=== PATIENT | female | born 1965 | race Caucasian/White ===

== ENCOUNTER 2020-07-08 10:32 | Outpatient (CLI) | payer OTHER, SELFPAY ==
--- NOTE | ~2020-07-08 | XR_ITS ---
EXAMINATION: XR thoracic spine 2V DATE: 07/08/2020 11:02 INDICATION: Back pain. TECHNIQUE: 3 views of thoracic spine were obtained. COMPARISON: Chest 2 views 12/24/2017 FINDINGS: There is 11 degrees levoscoliosis of thoracic spine. There is kyphosis of thoracic spine. T here are fractures of 6 contiguous mid thoracic vertebral bodies, most of which are chronic. Two of t he fractures have worsened 12/24/17. There is mild to moderately decreased disc height at multiple mid thoracic levels. There are endplate osteophytes at most levels. There are multiple old healed rib fra ctures bilaterally. IMPRESSION: 1. Two vertebral body fractures in mid thoracic spine, likely chronic, but worsened from 12/24/2017. 2. Moderate thoracic spondylosis. 3. Thoracic kyphosis and levoscoliosis. Reviewed, dictated and finalized at location B. IMPRESSION: 1. Two vertebral body fractures in mid thoracic spine, likely chronic, but wors ened from 12/24/2017. 2. Moderate thoracic spondylosis. 3. Thoracic kyphosis and levoscoliosis.
--- NOTE | ~2020-07-08 | XR_ITS ---
EXAMINATION: XR lumbar spine 2-3V DATE: 07/08/2020 11:02 INDICATION: Mid to low back pain. Arthralgia. TECHNIQUE: 3 views of lumbar spine were obtained. COMPARISON: Chest 2 views 12/24/2017 FINDINGS: Bone alignment is normal. There are 13 pairs of ribs. There are old healed right rib fractu res. There is a compression fracture of L3 with 2/5 loss of height. Intervertebral disc heights are n ormal. There are endplate osteophytes at most levels. There is moderate to severe facet joint osteoar thritis in lower lumbar spine. There are gallstones in the gallbladder. IMPRESSION: 1. Age-indeterminate compression fracture of L3, new from 12/24/2017. 2. Mild lumbar spondylosis. 3. Cholelithiasis. Reviewed, dictated and finalized at location B.
== END 2020-07-08 10:33 | disposition home or self-care (01) ==
LOC: ANHIMG 10:38
PROVIDERS: Visit Provider Physician Assistant
DX: M47.894 Other spondylosis, thoracic region (principal); M47.896 Other spondylosis, lumbar region; K80.20 Calculus of gallbladder without cholecystitis without obstruction
CPT/HCPCS: 72070; 72100

== ENCOUNTER 2020-07-16 14:55 | Outpatient (CLI) | payer OTHER, SELFPAY | END 2020-07-16 14:56 | LOC: ANHCOVIDVC 14:56 | DX: Z23 Encounter for immunization (principal) | CPT/HCPCS: 0001A; 91300 ==

== ENCOUNTER 2020-08-06 14:54 | Outpatient (CLI) | payer OTHER, SELFPAY | END 2020-08-06 14:55 | disposition home or self-care (01) | LOC: ANHCOVIDVC 14:54 | DX: Z23 Encounter for immunization (principal) | CPT/HCPCS: 0002A; 91300 ==

== ENCOUNTER 2020-08-13 14:56 | Outpatient (CLI) | payer OTHER, SELFPAY ==
--- NOTE | ~2020-08-13 | DEXA_ITS ---
Bone Density Report Name: Princess Gardner Age: 55 Sex: Female Ethnicity: White Date of : 1965 Indication: postmenopausal osteoporosis; height loss; Referring Provider: Joao, Sarabjit Kebede Study: Bone densitometry was performed. Exam Date: August 13, 2020 Accession number: [id number] Bone Density: Region BMD T-score Z-score Classification AP Spine (L1, L2, L3) 0.750 -2.4 -1.4 Osteopenia Femoral Neck (Left) 0.527 -2.9 -1.8 Osteoporosis Total Hip (Left) 0.591 -2.9 -2.2 Osteoporosis Total Hip Bilateral Avg 0.587 -3.0 -2.3 Osteoporosis Femoral Neck (Right) 0.502 -3.1 -2.0 Osteoporosis Total Hip (Right) 0.582 -3.0 -2.3 Osteoporosis World Health Organization criteria for BMD impression classify patients as: Normal (T-score at or above -1.0), Osteopenia (T-score between -1.0 and -2.5), or Osteoporosis (T-score at or below -2.5). 10-year Fracture Risk: FRAX not reported because: Some T-score for Spine Total or Hip Total or Femoral Neck at or below -2.5 Previous Exams: Region Exam Age BMD T-score BMD Change BMD Change Date g/cm2 vs Baseline vs Previous AP Spine(L1, L2, L3) 08/13/2020 55 0.750 -2.4 0.136(22.1%)* 0.136(22.1%)* 04/27/2018 53 0.614 -3.7 Total Hip(Left) 08/13/2020 55 0.591 -2.9 0.036(6.4%)* 0.036(6.4%)* 04/27/2018 53 0.556 -3.2 Total Hip(Right) 08/13/2020 55 0.582 -3.0 0.039(7.2%)* 0.039(7.2%)* 04/27/2018 53 0.542 -3.3 *Denotes significance at 95% confidence level, LSC for AP Spine = 0.022 g/cm2, LSC for Total Hip = 0.027 g/cm2 Clinical Information Provided by Patient: Smokes Has used the following medications: Fosamax (i.e. alendronate), Calcium Patient maximum height was 64 Menopause Age: 45 Drinks caffeinated beverages Onset of menses at age 15 Number of children 1 Impression: The patient has osteoporosis, based on the Right Femoral Neck T-score. The patient has risk factors, including: smoking. No significant bone loss was observed. Discussion: HIGH RISK OF FRACTURE. BONE DENSITY IS UNDESIRABLY LOW AT ONE OR MORE SKELETAL SITES, CONSISTENT WITH OSTEOPOROSIS. ALSO, BONE DENSITY IS LOWER THAN EXPECTED FOR AGE AND SEX AT ONE OR MORE SKELETAL SITES; RECOMMEND A DILIGENT SEARCH FOR SECONDARY CAUSES OF BONE LOSS. This patient's lowest T-score meets the World Health Organization's (WHO) criteria for osteoporosis at one or more sites (T-score -2.5 or below). In untreated patients, the risk of osteoporotic fracture
== END 2020-08-13 14:57 | disposition home or self-care (01) ==
LOC: ANHIMG 14:58
PROVIDERS: PCP Physician Assistant; Visit Provider Physician Assistant
DX: M81.0 Age-related osteoporosis without current pathological fracture (principal)
CPT/HCPCS: 77080

== ENCOUNTER 2021-07-17 01:20 | Day surgery (SDC) | payer OTHER, SELFPAY ==
[2021-07-08 14:10] VITALS: BMI 23.8
--- NOTE | 2021-07-08 14:17 | PC.NURSE ---
Report to the Outpatient Waiting Room, entrance under the green pavilion located off [facility], at time _0915 on date ___07/17/21____. OR Time: __111 . - You and your visitor will be asked a series of questions to screen for COVID 19 for your protection. - A mask is required within the hospital. Preoperative COVID Testing Requirements: No COVID Test needed if: (proof is required; if not received patient will have Rapid Test prior to entry) - Patient has received COVID Vaccine at least 14 days prior to procedure date or - Patient has positive COVID test result within last 90 days of surgery date. COVID Test needed if above criteria is not met If not COVID vaccinated a COVID test must be conducted within 72 hours of surgery and patient is asked to isolate self from time of testing until procedure. You will go to the [facility] for your COVID testing. The [facility] site is located at the corner of [address] [facility]. You will only be called if COVID results are positive and your surgeon may reschedule your elective surgery date. Patients may have clear liquids (water, carbonated beverages, clear teas, apple juice) until 3 hours prior to surgery with a maximum of 20 ounces. - No food from midnight until time of surgery - Infants may have breast milk until 4 hours before surgery, formula 6 hours prior to surgery. - Children will be allowed to drink immediately following surgery. If applicable, please bring a bottle or sippy cup to assist with drinking. Juice, water, soda, and popsicles are readily available. For infants on formula, please bring formula the day of surgery. Pacifiers are allowed. Take the following medications with a SIP of water the morning of surgery: ___NONE Medications to discontinue per physician SUPPLIMENTS,HYDROXYCHLOROQUINE Date to take last dose____07/14/21 Please no make-up, nail indonesian, hairspray, perfume, deodorant, or body powder the day of surgery. No jewelry (including any body piercings) or valuables the day of surgery, leave them at home. Please take a shower or bath the night before, or the morning of, surgery with an antibacterial soap. Wear comfortable, loose fitting clothing. Children are encouraged to wear pajamas. - Jewelry must be removed prior to entering the operating room. Rings and piercings that are not removed may be cut off. - The hospital will not accept responsibility for valuables. - Please leave all valuables, including medications, at home the day of surgery. If you are going home after surgery, a licensed transit mixer driver must drive you home. - NO public transportation without another adult. - We recommend that an adult stay with you for 24 hours following discharge. - We also recommend that you do not drive, make important decision, drink alcoholic beverages, or take any drugs that were not prescribed by your health care provider for at least 24 hours after your discharge time. For Pediatric surgeries, we recommend two adults accompany the child home (only one inside the building at this time). One visitor will be allowed to accompany the patient into the hospital. Patients visitor will be instructed to remain with patient at all times or leave the building. We will allow the visitor to come back to the postoperative area when patient is ready. Follow any additional instructions given to you from your surgeon. Telephone instructions given to __PATIENT and asked if any additional questions and then verbalized understanding. Patient advised to call surgeon office or pre surgery nurse liaison [phone] if any additional questions.
[2021-07-17] VITALS (7 sets, daily range): BP systolic 105–133; BP diastolic 72–80; PULSE 67–90; RESP 14–16; TEMP 36.2–36.4; O2SAT 93–99
--- NOTE | ~2021-07-17 | XR_ITS ---
EXAMINATION: XR surgery orthopedic DATE: 07/17/2021 12:08 INDICATION: Right foot surgery TECHNIQUE: 2 fluoroscopic images of the right forefoot were obtained during procedure performed by Dr Emma Ayoub. Radiologist was not present for the imaging or procedure. The amount of fluoroscopy time used during this procedure was 0.1 minutes. COMPARISON: None. FINDINGS: Osteotomy of the head of the second proximal phalanx potentially for second proximal interphalangeal arthrodesis. The second toe is fixed in mild dorsiflexion at the metatarsophalangeal joint with an ax ially directed percutaneous pin which extends from the tuft of the distal phalanx across the base of the proximal phalanx and into the neck of the second metatarsal. No fractures identified. Bone island at the first distal phalanx. IMPRESSION: 1. Fluoroscopy utilized during likely hammertoe correction at the right second tarsal interphalangeal joint. See procedure note for further detail. Reviewed, dictated and finalized at location A.
--- NOTE | 2021-07-17 07:09 | WPDHPUPDATE1 ---
History and Physical Update Update Date/Time: 07/17/21 07:09 History and Physical has been reviewed, including an updated exam of the patient. There are NO changes in the patient's condition. Risks, benefits, and alternatives have been discussed and questions answered. Patient agrees to proceed with procedure.
--- NOTE | 2021-07-17 10:02 | WPDANESEPPF ---
Anes - Initial Pre Proc Eval Procedure: Operation Date: 07/17/21 11:15 Proposed Procedures p Lateral Release Right First Metatarsal Phalangeal Joint, - Mundo Ayoub JR, MD s Hammer Toe Repair Second Digit Right Foot, Capsulotomy and Extensor Tenotomy Fifth Toe Right Foot - Mundo Ayoub JR, MD Date/Time: 07/17/21 10:02 Surgeon: Mundo Ayoub JR, MD Pre Op Diagnosis: bunion, hammertoe 2nd&5th digits rt foot Patient Data Age: 56 Gender: F Height: 1.56 m Weight: 58.2 kg Last Vital Signs Temp 36.4 C 07/17/21 09:20 Pulse 90 07/17/21 09:20 Resp 16 07/17/21 09:20 BP 133/76 07/17/21 09:20 Pulse Ox 99 07/17/21 09:20 Allergies Allergy/AdvReac Type Severity Reaction Status Date / Time No Known Allergies Allergy Unverified 07/17/21 09:51 Home Medications Medication Instructions Recorded Confirmed Type Vitamin D (with calcium) 1 tab-cap PO DAILY 07/08/21 07/17/21 History calcium 100 mg PO DAILY 07/08/21 07/17/21 History hydroxychloroquine 300 mg PO DAILY 07/08/21 07/17/21 History leflunomide 20 mg PO DAILY 07/08/21 07/17/21 History Patient hx anesthesia problems: none Family hx anesthesia problems: none Results Review: All pre-operative results and documents have been reviewed as part of the pre-operative evaluation. [facility] Past Medical History Medical History Eczema Rheumatoid arthritis Social History Social History Smoking packs per day: 0.5 Smoking cigarettes per day: 10.0 Years smoked: 35 Smoking pack-years: 17.50 Smoking status: Current every day smoker Alcohol use details: 3 PER MONTH Living arrangements: alone Anes - Eval Final PreProcedure Day of Procedure 07/17/21 10:02 Patient weight: normal Heart: regular rate and rhythm Lungs: decreased breath sounds Airway: Mallampati scale class II Neurological: alert and oriented Last oral intake: >/= 8 hours ASA classification: III Emergent: no Anesthetic plan: proceed Anesthesia type and monitoring: general LMA and standard monitoring Results Review: All pre-operative results and documents have been reviewed as part of the pre-operative evaluation. Informed Consent: The patient's anesthetic plan and its attendant risks and benefits were discussed with the patient/family/POA. Questions were solicited and answers provided to the satisfaction of the patient/family/POA.
[2021-07-17] MEDS: LACTATED RINGERS 1,000 ML 30 ML IV CONT (10:15)
[2021-07-17] MEDS: ceFAZolin 2 GM/D5W 50 ML 2 GM/50 ML BAG IVPB (11:11)
[2021-07-17] MEDS: BUPIVACAINE HCL 0.5% PF 30 ML VIAL INFILTRATE (11:40)
[2021-07-17] MEDS: LIDOCAINE HCL 2% LOCAL INJ 20 ML VIAL INFILTRATE (11:40)
--- NOTE | 2021-07-17 11:56 | SUR.OPER ---
2nd toe right foot 1.4 k wire ([id number]) with [place].
--- NOTE | 2021-07-17 14:06 | W.PM.PROC2 ---
Procedure Note - Detailed Date of Procedure 07/17/21 Pre-op Diagnosis 1. Mild bunion deformity right foot 2. Painful hammertoe deformity 2nd digit right foot 3. Dorsally contracted 5th digit right foot Post-op Diagnosis Same Procedure Performed 1. Lateral release of the first metatarsal phalangeal joint with adductor hallucis to first metatarsal head tendon transfer 2. Hammertoe repair with arthrodesis of the proximal interphalangeal joint of the right 2nd digit 3. Extensor tenotomy and dorsal capsulotomy of the fifth metatarsal phalangeal joint right foot Surgeon Mundo Ayoub JR, DPIrma Anesthesia MAC and Local Indications Right forefoot pain Description of Procedure Under mild sedation, the patient was brought in to the operating room, placed on the operating table in the supine position. A pneumatic ankle tourniquet was placed about the patient's ankle. Following monitored anesthesia care, local anesthesia was obtained about the right ankle with a ring block utilizing 20 mL of a 1:1 mixture of 2% Lidocaine plain and 0.5% Marcaine plain . The foot was then scrubbed, prepped, and draped in the usual aseptic manner. An Esmarch bandage was then used to exsanguinate the patient's foot and the pneumatic ankle tourniquet was then inflated. Attention was directed to the second digit of the right foot where a 3cm incision was made from the distal interphalangeal joint extending to the 2nd digit base of the proximal phalanx. A transverse tenotomy was created dorsal to the proximal interphalangeal joint, next the head of the proximal phalanx was resected with an oscillating saw blade, the [employer] hammertoe planer was used to denude and prepare the joint for the hammertoe implant from the base of the middle phalanx and distal proximal phalanx, the canal of the proximal phalanx was noted to be very soft and likely not able to hold the [employer] hammertoe implant. Next, I drove a k wires out the distal tip of the 2nd digit and then retrograded the k wire though the 3 phalanges of the 2nd digit, held the 2nd digit in a rectus position and proceeded to drive the k wire dorsal and finally within the 2nd metatarsal. Excellent corretion of the hammertoe deformity was noted. I cut the end of the K wire and placed a Bit9gan Pin Ball over the tip of the digit. I reapproximated the subcutaneous structures with 4.0 Vicryl and the skin with 4-0 Monocryl. Next, I directed my attention to the first intermetatarsal space where I made a 3cm incision over the dorsal lateral first metatarsal phalangeal joint. I dissected deep utilizing blunt tenotomy scissors to the base of the proximal phalanx and the fibular sesamoid. I cut the lateral aspect of the first metatarsal capsule as well as the fibular surface of the sesamoid as well as proximal and distal. I took a Juggernaut 1.4 [place] and drove it into the lateral head of the first metatarsal, next I sutured the adductor hallucis to the head of the first metatarsal and released its attachment distally, The fibular sesamoid positioned seemed to improve as well as reduction of the first intermetatarsal angle as noted with a dorsal to plantar fluoroscopy view. I reapproximated the subcutaneous structures with 4-0 Vicryl and the skin with 4-0 Monocryl. Finally, I made a 2cm incision over the 5th digit metatarsal phalangeal joint I made a transverse cut through the tightly contracted extensor tendons and capsule overlying the joint. I utilized the McGlammry elevator to free the plantar fifth metatarsal phalangeal joint. After the release of the above mentioned structures the fifth digit was now in a rectus position and in line with the fourth digit in the sagittal plane. Upon completion of the procedure, the incisions were dressed with Steri-Strips, Adaptic, 4x4s, Kerlix, and Coban. The pneumatic ankle tourniquet was then deflated and a prompt hyperemic response was noted to all digits of the right foot. A CAM walker
== END 2021-07-17 13:39 | disposition home or self-care (01) ==
PROVIDERS: Visit Provider Podiatrist Foot & Ankle Surgery
PROC: (CPT 28750; principal; 2021-07-17 11:15)
PROC: (CPT 28285; 2021-07-17 11:15)
DX: M21.611 Bunion of right foot (principal); M20.41 Other hammer toe(s) (acquired), right foot; M20.5X1 Other deformities of toe(s) (acquired), right foot; L30.9 Dermatitis, unspecified; M06.9 Rheumatoid arthritis, unspecified; F17.210 Nicotine dependence, cigarettes, uncomplicated
CPT/HCPCS: 28285; 28270; 28286; C1713; J0690; J1100; J2250; J2270; J2405; J2704; J7120

== ENCOUNTER 2021-10-09 00:15 | Day surgery (SDC) | payer OTHER, SELFPAY ==
[2021-09-30 14:32] VITALS: BMI 24.1
--- NOTE | 2021-09-30 14:40 | PC.NURSE ---
Report to the Outpatient Waiting Room, entrance under the green pavilion located off [facility], at time 0630 on date 10/09/21. OR Time: 0830. - You and your visitor will be asked a series of questions to screen for COVID 19 for your protection. - Only one visitor is allowed at this time. - The patient visitor is requested to leave or wait in car when not with patient. - A mask is required within the hospital. Patients may have clear liquids (water, carbonated beverages, clear teas, apple juice) until 3 hours prior to surgery with a maximum of 20 ounces. - No food from midnight until time of surgery Take the following medications with a SIP of water the morning of surgery: LEFLUNOMIDE Medications to discontinue per physician: VITAMINS/HYDROXYCHLOROQUINE Date to take last dose: 10/05/21/PER DR. BAILEY Please no make-up, nail macedonian, hairspray, perfume, deodorant, or body powder the day of surgery. No jewelry (including any body piercings) or valuables the day of surgery, leave them at home. Please take a shower or bath the night before, or the morning of, surgery with an antibacterial soap. Wear comfortable, loose fitting clothing. - Jewelry must be removed prior to entering the operating room. Rings and piercings that are not removed may be cut off. - The hospital will not accept responsibility for valuables. - Please leave all valuables, including medications, at home the day of surgery. If you are going home after surgery, a licensed road oiling truck driver must drive you home. - NO public transportation without another adult. - We recommend that an adult stay with you for 24 hours following discharge. - We also recommend that you do not drive, make important decision, drink alcoholic beverages, or take any drugs that were not prescribed by your health care provider for at least 24 hours after your discharge time. Follow any additional instructions given to you from your surgeon. If you or anyone in your household have experienced Covid symptoms in the past week, please notify your surgeon or the nurse liaison at the phone number below for possible testing. Telephone instructions given to PT - RALF HOROWITZ and asked if any additional questions and then verbalized understanding. Patient advised to call surgeon office or pre surgery nurse liaison [phone] if any additional questions.
--- NOTE | 2021-10-08 10:37 | WPDANESEPPF ---
Anes - Initial Pre Proc Eval Procedure: Operation Date: 10/09/21 08:30 Proposed Procedures p Hammer Toe Repair Second Digit Left Foot - Mundo Ayoub JR, MD <Regis Mcqueen MD - Last Filed: 10/08/21 10:38> Date/Time: 10/08/21 10:37 <Regis Mcqueen MD - Last Filed: 10/08/21 10:38> Surgeon: Mundo Ayoub JR, MD <Regis Mcqueen MD - Last Filed: 10/08/21 10:38> Pre Op Diagnosis: painful hammer toe 2nd digit left foot <Regis Mcqueen MD - Last Filed: 10/08/21 10:38> Patient Data Age: 56 Gender: F Height: 1.56 m Weight: 59 kg <Regis Mcqueen MD - Last Filed: 10/08/21 10:38> Allergies Allergy/AdvReac Type Severity Reaction Status Date / Time No Known Allergies Allergy Unverified 09/30/21 14:31 <Regis Mcqueen MD - Last Filed: 10/08/21 10:38> Home Medications Medication Instructions Recorded Confirmed Type Vitamin D (with calcium) 1 tab-cap PO DAILY 07/08/21 09/30/21 History calcium 500 mg tablet 100 mg PO DAILY 07/08/21 09/30/21 History hydroxychloroquine 200 mg tablet 300 mg PO DAILY 07/08/21 09/30/21 History leflunomide 20 mg tablet 20 mg PO DAILY 07/08/21 09/30/21 History <Regis Mcqueen MD - Last Filed: 10/08/21 10:38> Patient hx anesthesia problems: none <Bob Hou DO - Last Filed: 10/09/21 07:19> Family hx anesthesia problems: none <Bob Hou DO - Last Filed: 10/09/21 07:19> Results Review: All pre-operative results and documents have been reviewed as part of the pre-operative evaluation. <Regis Mcqueen MD - Last Filed: 10/08/21 10:38> [facility] Past Medical History Medical History: Medical History Eczema Rheumatoid arthritis <Regis Mcqueen MD - Last Filed: 10/08/21 10:38> Social History Social History: Social History Smoking packs per day: 0.5 Smoking cigarettes per day: 10.0 Years smoked: 30 Smoking pack-years: 15.00 Smoking status: Current every day smoker Tobacco type: cigarettes Alcohol intake: current Alcohol use details: 4/MONTH Substance use: never Substance use type: does not use Living arrangements: alone Spiritual care concerns: No <Regis Mcqueen MD - Last Filed: 10/08/21 10:38> Anes - Eval Final PreProcedure Day of Procedure 10/08/21 10:37 <Regis Mcqueen MD - Last Filed: 10/08/21 10:38> Patient weight: normal <Regis Mcqueen MD - Last Filed: 10/08/21 10:38> Heart: regular rate and rhythm <Regis Mcqueen MD - Last Filed: 10/08/21 10:38> Lungs: decreased breath sounds <Regis Mcqueen MD - Last Filed: 10/08/21 10:38> Airway: Mallampati scale class II <Regis Mcqueen MD - Last Filed: 10/08/21 10:38> Neurological: alert and oriented <Regis Mcqueen MD - Last Filed: 10/08/21 10:38> Last oral intake: >/= 8 hours <Regis Mcqueen MD - Last Filed: 10/08/21 10:38> ASA classification: II <Regis Mcqueen MD - Last Filed: 10/08/21 10:38> III <Bob Hou DO - Last Filed: 10/09/21 07:19> Emergent: no <Regis Mcqueen MD - Last Filed: 10/08/21 10:38> Anesthetic plan: proceed <Regis Mcqueen MD - Last Filed: 10/08/21 10:38> Anesthesia type and monitoring: general LMA and standard monitoring <Regis Mcqueen MD - Last Filed: 10/08/21 10:38> Results Review: All pre-operative results and documents have been reviewed as part of the pre-operative evaluation. <Regis Mcqueen MD - Last Filed: 10/08/21 10:38> Informed Consent: The patient's anesthetic plan and its attendant risks and benefits were discussed with the patient/family/POA. Questions were solicited and answers provided to the satisfaction of the patient/family/POA. <Regis Mcqueen MD - Last Filed: 10/08/21 10:38>
--- NOTE | ~2021-10-09 | XR_ITS ---
EXAMINATION: XR surgery orthopedic DATE: 10/09/2021 09:07 INDICATION: Left foot surgery TECHNIQUE: Single dorsal plantar fluoroscopic image of the left forefoot was obtained during procedur e performed by Dr. Ayoub. Radiologist was not present for the imaging or procedure. The amount of fluoroscopy time used during this procedure was 0.3 minutes. COMPARISON: None. FINDINGS: Osteotomy of the head of the second proximal phalanx and second proximal interphalangeal tim int arthrodesis fixed with a bidirectional compression screw which has been placed over an axially di rected percutaneous wire extending from the distal phalanx to the middle and proximal phalanges of th e head of the second metatarsal. No acute fracture. Mild osteoarthritis at the first metatarsophalang eal and a few interphalangeal joints. There is an abnormal contour to the head of the fifth metatarsa l and base of the fifth proximal phalanx which could represent sequela of old trauma, surgery or arth ritis more severe than the the relatively preserved joint space would indicate. IMPRESSION: 1. Second proximal interphalangeal joint arthrodesis with resection of the head of the second proxima l phalanx and bidirectional screw fixation. Reviewed, dictated and finalized at location A. IMPRESSION: 1. Second proximal interphalangeal joint arthrodesis with resection of the head of the second proximal phalanx and bidirectional screw fixation.
--- NOTE | 2021-10-09 07:25 | WPDHPUPDATE1 ---
History and Physical Update Update Date/Time: 10/09/21 07:25 History and Physical has been reviewed, including an updated exam of the patient. There are NO changes in the patient's condition. Risks, benefits, and alternatives have been discussed and questions answered. Patient agrees to proceed with procedure.
[2021-10-09] MEDS: LACTATED RINGERS 1,000 ML 30 ML IV CONT (07:44)
[2021-10-09 07:49] VITALS: BP 108/78; PULSE 86; RESP 16; TEMP 36.6; O2SAT 99
[2021-10-09] MEDS: ceFAZolin 2 GM/D5W 50 ML 2 GM/50 ML BAG IVPB (08:28)
[2021-10-09] MEDS: LIDOCAINE HCL 2% LOCAL INJ 20 ML VIAL 10 ML INFILTRATE (08:44)
[2021-10-09] MEDS: BUPIVACAINE HCL 0.5% PF 30 ML VIAL 10 ML INFILTRATE (08:46)
[2021-10-09 09:17] VITALS: BP 103/74; PULSE 71; RESP 14; O2SAT 95
--- NOTE | 2021-10-09 09:25 | P.OP_ITS ---
Procedure Note - Detailed Date of Procedure 10/09/21 Pre-op Diagnosis Painful hammer toe 2nd digit left foot Post-op Diagnosis Same Procedure Performed 1. Hammertoe repair 2nd digit left foot with arthrodesis of the proximal interphalangeal joint 2. Extensor tenotomy 2nd digit left foot Surgeon Mundo Ayoub JR, GERARDO Indications Painful 2nd digit hammertoe 2nd digit left foot Description of Procedure Under mild sedation, the patient was brought in to the operating room, placed on the operating table in the supine position. A pneumatic ankle tourniquet was placed about the patient's ankle. Following monitored anesthesia care, local anesthesia was obtained about the foot utilizing 20 mL of a 1:1 mixture of 2% Lidocaine plain and 0.5% Marcaine plain with a modified proximal Mays block proximal to the corresponding digit. The foot was then scrubbed, prepped, and draped in the usual aseptic manner. An Esmarch bandage was then used to exsanguinate the patient's foot and the pneumatic ankle tourniquet was then inflated. Attention was directed to the second digit of the left foot where a 3cm incision was made from the distal interphalangeal joint extending to the 2nd metatarsal head. A transverse tenotomy was created dorsal to the proximal interphalangeal joint, next the head of the proximal phalanx was resected with an oscillating saw blade, the [employer] hammertoe planer was used to denude and prepare the joint for the hammertoe implant from the base of the middle phalanx and distal proximal phalanx. Next, I implanted the [employer] Phalinx size Medium hammertoe implant in a cannulated fashion using standard technique. Fluoroscopy was used to make sure that the digit and implant were appropriately positioned. I also used the K wire to hold the 2nd digit in a rectus position by driving the K wire into the 2nd metatarsal. I reapproximated the subcutaneous structures with 4.0 Vicryl and the skin with 4-0 Monocryl. I noticed an extensor pull the 2nd digit still noted.I made a small 1cm incision along the distal metaphysis of the 2nd metatarsal. I utilized a 15 blade to release the long extensor tendon. the extensor pull was immediately noted to be reduced. I did reapproximate the skin with 4-0 Prolene in simple interrupted suture technique. Upon completion of the procedure, the incisions were dressed with Steri-Strips, Adaptic, 4x4s, Kerlix, and Coban. The pneumatic ankle tourniquet was then deflated and a prompt hyperemic response was noted to all digits of the left foot. A surgical shoe was then applied. The patient did very well with the procedure and the anesthesia. The patient was transferred to the recovery room with vital signs stable and vascular status intact to all toes of the left foot. Following a period of postoperative monitoring, the patient will be discharged home on the following written and oral postoperative instructions: 1. The patient should keep the dressing clean, dry, and intact. Use a cast protector bag with showers. 2. The patient will be protected with a CAM walker boot 3. Patient should ice and elevate the affected foot when at rest. 4. The patient is to contact Dr. Ayoub for all postop care and if any problems arise. 5. Prescriptions were written for Percocet 5/325 to be taken 1 p.o. q.4-6 hours as needed for severe pain. Implants Size medium [employer] Phalinx hammertoe implant Estimated Blood Loss 1 Complications No immediate complications Condition Stable Disposition Same day
[2021-10-09 09:47] VITALS: BP 112/62; PULSE 63; RESP 16
== END 2021-10-09 09:55 | disposition home or self-care (01) ==
PROVIDERS: Visit Provider Podiatrist Foot & Ankle Surgery
PROC: (CPT 28285; principal; 2021-10-09 08:30)
DX: M20.42 Other hammer toe(s) (acquired), left foot (principal); M06.9 Rheumatoid arthritis, unspecified; L30.9 Dermatitis, unspecified; F17.210 Nicotine dependence, cigarettes, uncomplicated
CPT/HCPCS: 28285; 28234; 99199; J0690; J2250; J2704; J3010; J7120

== ENCOUNTER 2023-01-14 13:40 | Outpatient (CLI) | payer OTHER, SELFPAY ==
--- NOTE | ~2023-01-14 | DEXA_ITS ---
Bone Density Report Name: RALF HOROWITZ Age: 57 Sex: Female Ethnicity: White Date of : 1965 Indication: postmenopausal osteoporosis; monitoring treatment; height loss; prior fracture; rheumatoid arthritis; Referring Provider: KATERINA, SANDY Kebede Study: Bone densitometry was performed. Exam Date: January 14, 2023 Accession number: [id number] Bone Density: Region BMD T-score Z-score Classification AP Spine(L1-L4) 0.768 -2.5 -1.3 Osteoporosis Femoral Neck (Left) 0.542 -2.8 -1.6 Osteoporosis Total Hip (Left) 0.633 -2.5 -1.7 Osteoporosis Femoral Neck (Right) 0.557 -2.6 -1.4 Osteoporosis Total Hip (Right) 0.627 -2.6 -1.7 Osteoporosis Total Hip Mean 0.630 -2.6 -1.7 Osteoporosis World Health Organization criteria for BMD impression classify patients as: Normal (T-score at or above -1.0), Osteopenia (T-score between -1.0 and -2.5), or Osteoporosis (T-score at or below -2.5). 10-year Fracture Risk: FRAX not reported because: Some T-score for Spine Total or Hip Total or Femoral Neck at or below -2.5 Prior hip or vertebral fracture Treated for osteoporosis Previous Exams: Region Exam Age BMD T-score BMD Change BMD Change Date g/cm2 vs Baseline vs Previous Total Hip(Left) 01/14/2023 57 0.633 -2.5 0.078 (14.0%)* 0.042 (7.1%)* 08/13/2020 55 0.591 -2.9 0.036 (6.4%)* 0.036 (6.4%)* 04/27/2018 53 0.556 -3.2 Total Hip(Right) 01/14/2023 57 0.627 -2.6 0.085 (15.6%)* 0.045 (7.8%)* 08/13/2020 55 0.582 -3.0 0.039 (7.2%)* 0.039 (7.2%)* 04/27/2018 53 0.542 -3.3 *Denotes significance at 95% confidence level, LSC for Total Hip = 0.027 g/cm2 Clinical Information Provided by Patient: Have had a previous hip or vertebral fracture Has had a low trauma fracture Smokes Has rheumatoid arthritis Is being treated for osteoporosis Has used the following medications: Prolia (i.e. denosumab), Vitamin D, Calcium Patient maximum height was 64 Menopause Age: 45 No regular weight bearing exercise Drinks caffeinated beverages Onset of menses at age 15 Number of children 1 Impression: The patient has established osteoporosis, based on the Left Femoral Neck T-score and the existence of a prior fracture. The patient has risk factors, including: smoking, previous fracture. No significant bone loss was observed. Discussion: PATIENT UNDER TREATMENT WITH NO SIGNIFICANT BMD LOSS SINCE LAST EXAM. In an untreated patient, BMD typically declines with age. A lack of decline or gain is usually a sign that treatment is efficacious and fracture risk is reduced. It is i
== END 2023-01-14 13:41 | disposition home or self-care (01) ==
LOC: ANHIMG 13:43
PROVIDERS: PCP Physician Assistant; Visit Provider Physician Assistant
DX: M81.0 Age-related osteoporosis without current pathological fracture (principal)
CPT/HCPCS: 77080

== ENCOUNTER 2024-03-29 11:54 | Outpatient (CLI) | payer OTHER, SELFPAY ==
--- NOTE | ~2024-03-29 | XR_ITS ---
EXAMINATION: XR thoracic spine 2V DATE: 03/29/2024 12:20 INDICATION: Thoracic back pain. TECHNIQUE: 2 views of thoracic spine were obtained. COMPARISON: Thoracic spine radiographs 07/08/2020 FINDINGS: There is 6 degrees levocurvature of thoracic spine. There is kyphosis of thoracic spine. Th ere are chronic fractures of 7 contiguous midthoracic vertebral bodies. There is decreased disc heigh t at many levels, severe at a few levels in mid thoracic spine. There are old healed bilateral rib fr actures. IMPRESSION: 1. Severe thoracic spondylosis. 2. Thoracic kyphosis. Reviewed, dictated and finalized at location A. RVISOR IRRIGATION
== END 2024-03-29 11:55 | disposition home or self-care (01) ==
LOC: ANHIMG 11:58
PROVIDERS: PCP Physician Assistant; Visit Provider Physician Assistant
DX: M47.814 Spondylosis without myelopathy or radiculopathy, thoracic region (principal); M40.204 Unspecified kyphosis, thoracic region
CPT/HCPCS: 72070

== ENCOUNTER 2025-03-06 14:11 | Outpatient (CLI) | payer OTHER, SELFPAY ==
--- NOTE | ~2025-03-06 | DEXA_ITS ---
Bone Density Report Name: RALF HOROWITZ Age: 60 Sex: Female Ethnicity: White Date of : 1965 Indication: postmenopausal osteoporosis; monitoring treatment; height loss; prior fracture; rheumatoid arthritis; Referring Provider: KATERINA, SANDY Kebede Study: Bone densitometry was performed. Exam Date: March 06, 2025 Accession number: [id number] Bone Density: Region BMD T-score Z-score Classification AP Spine(L2, L3, L4) 0.763 -2.9 -1.4 Osteoporosis Femoral Neck (Left) 0.521 -3.0 -1.7 Osteoporosis Total Hip (Left) 0.592 -2.9 -1.9 Osteoporosis Femoral Neck (Right) 0.549 -2.7 -1.4 Osteoporosis Total Hip (Right) 0.599 -2.8 -1.9 Osteoporosis Total Hip Mean 0.595 -2.9 -1.9 Osteoporosis World Health Organization criteria for BMD impression classify patients as: Normal (T-score at or above -1.0), Osteopenia (T-score between -1.0 and -2.5), or Osteoporosis (T-score at or below -2.5). 10-year Fracture Risk: FRAX not reported because: Some T-score for Spine Total or Hip Total or Femoral Neck at or below -2.5 Prior hip or vertebral fracture Treated for osteoporosis Previous Exams: Region Exam Age BMD T-score BMD Change BMD Change Date g/cm2 vs Baseline vs Previous AP Spine (L2-L4) 03/06/2025 60 0.763 -2.9 0.172 (29.1%)# 0.018 (2.5%) 01/14/2023 57 0.745 -3.0 0.154 (26.0%)# 0.154 (26.0%)# 04/27/2018 53 0.591 -4.4 Total Hip(Left) 03/06/2025 60 0.592 -2.9 0.036 (6.5%)* -0.042 (-6.6%) 01/14/2023 57 0.633 -2.5 0.078 (14.0%)* 0.042 (7.1%)* 08/13/2020 55 0.591 -2.9 0.036 (6.4%)* 0.036 (6.4%)* 04/27/2018 53 0.556 -3.2 Total Hip(Right) 03/06/2025 60 0.599 -2.8 0.057 (10.4%)* -0.028 (-4.5%) 01/14/2023 57 0.627 -2.6 0.085 (15.6%)* 0.045 (7.8%)* 08/13/2020 55 0.582 -3.0 0.039 (7.2%)* 0.039 (7.2%)* 04/27/2018 53 0.542 -3.3 *Denotes significance at 95% confidence level, LSC for AP Spine = 0.022 g/cm2, LSC for Total Hip = 0.027 g/cm2 # Denotes dissimilar scan types or analysis methods Clinical Information Provided by Patient: Have had a previous hip or vertebral fracture Has had a low trauma fracture Smokes Has rheumatoid arthritis Is being treated for osteoporosis Has used the following medications: Prolia (i.e. denosumab), Vitamin D, Calcium Patient maximum height was 64 Menopause Age: 45 No regular weight bearing exercise Drinks caffeinated beverages Onset of menses at age 15 Number of children 1 Impression: The patient has established osteoporosis, based on the Left Femoral Neck T-score and the existence of a prior fracture. The patient has risk factors, including: smoking, previous fracture. The BMD for the Total Hip(Left) decreased, changing by -6.6% since the last DXA exam. The BMD for the Total Hip(Right) decreased, changing by -4.5% since the last DXA exam. Discussion: SIGNIFICANT BONE LOSS OBSERVED. Adherence to therapy (including calcium and vitamin D intake) should be assessed. If compliance is not a factor, review management and exclusion of secondary causes of bone loss. It is important to ask patients whether they are taking their medications and to encourage continued and appropriate compliance with their osteoporosis therapies to reduce fracture risk. It is also important to review their risk factors and encourage appropriate calcium and vitamin D intakes, exercise, fall prevention and other lifestyle measures. Follow-Up: Consider a repeat BMD and Vertebral Fracture Assessment (VFA) exam in 2 years or sooner if medically necessary, to reassess this patient's status. Reported by: MISAEL on 03/06/2025 2:52:00 PM. Reviewed, dictated and finalized at location A.
== END 2025-03-06 14:12 | disposition home or self-care (01) ==
PROVIDERS: PCP Physician Assistant; Visit Provider Physician Assistant
DX: M81.0 Age-related osteoporosis without current pathological fracture (principal)
CPT/HCPCS: 77080